=== PATIENT | female | born 2005 | race African-American/Black ===

== ENCOUNTER 2024-05-01 01:36 | Emergency (ER) | payer OTHER, SELFPAY ==
--- NOTE | 2024-05-01 01:37 | ED.GENADULT ---
HPI - General Adult General Date Seen: 05/01/24 Chief complaint: Nausea/Vomiting Stated complaint: vomiting/nausea Time Seen by Provider: 05/01/24 01:37 History of Present Illness HPI narrative: 18 yo generall y healthy female who follows with [facility] for primary care (had a checkup 04/06/[address] Bill) presenting to ER [facility] for evaluation of N/V. He she presents to the ER [facility] accompanied by her college roommate. Patient has been healthy and well lately. This evening she developed symptoms of nausea. Few hours prior to arrival she became very nauseous and has had 3 episodes of nonbilious, nonbloody emesis. No abdominal pain or cramping. No diarrhea. No fever or chills. She has no recent suspicious food intake. No recent antibiotics. No known sick contacts. She has no previous abdominal surgeries. Related Data Home Medications ?Medication ?Instructions ?Recorded ?Confirmed No Known Home Medications 05/01/24 05/01/24 Allergies Allergy/AdvReac Type Severity Reaction Status Date / Time Penicillins Allergy Rash Verified 05/01/24 01:43 PFSH PFS Social History Smoking Status: Never smoker How often do you have a drink containing alcohol: never AUDIT-C Alcohol total score: 0 Non-prescribed substance use: denies use Exam Narrative: Exam Narrative: Constitutional: Appears well-developed and well-nourished. Alert. Conversant. Non toxic. HENT: Head: Atraumatic. Nose: Nose normal. Mouth/Throat: Oral mucosa is clear and moist. Mucous membranes are not desiccated or cracked no trismus. Pharynx normal. Eyes: Conjunctivae normal. EOM normal. Pupils equal, round, and reactive to light. No scleral icterus. Neck: Normal range of motion. Neck supple. No tracheal deviation present. Cardiovascular: Normal rate, regular rhythm. No gallop. No friction rub. No murmur heard. Symmetric radial artery pulses Pulmonary/Chest: Effort normal. No stridor. No respiratory distress. No wheezes. No rales. No rhonchi . Abdominal: Soft. Bowel sounds normal. No distension. No mass. No tenderness. No rebound. No guarding. No CVA tenderness Musculoskeletal: RUE: Normal range of motion. No tenderness. No deformity LUE: Normal range of motion. No tenderness. No deformity RLE: Normal range of motion. No edema. No tenderness. No deformity LLE: Normal range of motion. No edema. No tenderness. No deformity Neurological: Alert and oriented to person, place, and time. Normal strength. CN II-VII intact. No sensory deficit. GCS eye subscore is 4. GCS verbal subscore is 5. GCS motor subscore is 6. Normal coordination Skin: Skin is warm and dry. No rash noted. No pallor. Normal capillary refill. Psychiatric: Normal mood. Normal affect. Const: Vital Signs, click to edit/add: Vital Signs - 24 hr 05/01/24 01:40 Temperature 98.5 F Pulse Rate [Left P ulse Oximeter] 104 H Respiratory Rate 18 Blood Pressure [Ri ght Upper Arm] 119/75 Pulse Oximetry 96 Oxygen Delivery Me thod Room Air Course Course ED Course: Recheck-3:00 a.m.. Nausea improved after Zofran 0 DT. Tolerating oral intake well. No further vomiting. She has now had 1 episode of watery diarrhea. Will order Imodium. Reevaluation(s) Reevaluation #1: Recheck-330. Doing well. Nausea still gone. Tolerating fluids. Feels comfortable discharging home with her roommate. Prescriptions for Zofran through [facility]. She will olive picker Imodium [id number] if needed. Vital Signs Vital signs: Initial Vital Signs Temperature 98.5 F 05/01/24 01:40 Temperature Source Oral 05/01/24 01:40 Pulse Rate 104 H 05/01/24 01:40 Respiratory Rate 18 05/01/24 01:40 Blood Pressure 119/75 05/01/24 01:40 Blood Pressure Mean 89 05/01/24 01:40 Blood Pressure Position Sitting 05/01/24 01:40 Pulse Oximetry 96 05/01/24 01:40 Oxygen Delivery Method Room Air 05/01/24 01:40 Vital Signs Temperature 98.5 F 05/01/24 01:40 Pulse Rate 104 H 05/01/24 01:40 Respiratory Rate 18 05/01/24 01:40 Blood Pressure 119/75 05/01/24 01:40 Pulse Oximetry 96 05/01/24 01:40 Oxygen Delivery Method Room Air 05/01/24 01:40 Temperature 98.5 F 05/01/24 01:40 Pulse Rate 104 H 05/01/24 01:40 Respiratory Rate 18 05/01/24 01:40 Blood Pressure 119/75 05/01/24 01:40 Pulse Oximetry 96 05/01/24 01:40 Oxygen Delivery Method Room Air 05/01/24 01:40 Medications Administered Medications: Discontinued Medications Generic Name Dose Route Start Last Admin Trade Name Angie PRN Reason Stop Dose Admin Loperamide HCl 4 mg 05/01/24 03:03 05/01/24 03:12 Loperamide Hcl 2 Mg Capsule PO 05/01/24 03:04 4 mg ONCE ONE Administration Ondansetron HCl 4 mg 05/01/24 02:03 05/01/24 02:15 Ondansetron Odt 4 Mg Tab PO 05/01/24 02:04 4 mg ONCE ONE Administration Medical Decision Making MDM Narrative Medical decision making narrative: This patient presents with vomiting that began this evening a few hours prior to arrival. While she was here in the ER she also developed watery diarrhea. The patient's symptoms and exam could be consistent with a viral GI infection. There is a high prevalence of noro virus in the community currently. There is no high fever, severe pain, bilious or bloody emesis, blood or mucous in the stool, severe abdominal pain, or other concerning signs for a bacterial infection. No recent travel or high risk exposure for baceraial pathogen. No recent antibiotics or risk factors for C. diff. [] I don't see any evidence for appendicitis, bowel obstruction, abscess, bowel perforation, or other surgical emergency. At this point she is well-hydrated and feeling better after Zofran 0 DT. I do not think she needs IV fluids or labs.. After meds given the patient is feeling better. At this point, the patient is non-septic appearing and well hydrated.I think the patient can be managed as an outpatient. We have discussed oral rehydration strategies. They understand and can perform the needed interventions at home. I have provided a prescription for antiemetics to facilitate oral hydration (Zofran, [facility]).. Patient will olive picker Imodium [id number] if needed tomorrow. We have discussed the signs and symptoms of worsening dehydration. They understand the need for immediate reevaluation if any of these symptoms occur. They are also directed to obtain close outpatient follow up within 2-3 days. Discharge Plan Discharge Clinical Impression: Vomiting and diarrhea Patient Disposition: Home, Self-Care Condition: Stable Instructions: Acute Nausea and Vomiting (DC), Acute Diarrhea (ED) Additional Instructions: As we discussed, use the Zofran if needed for nausea and to help control vomiting. Drink plenty of fluids and small sips of liquids to stay hydrated. If you have more diarrhea you can olive picker Imodium (available at the pharmacy [id number]) and use it as directed on the box. I suspect the probably have a viral GI infection causing her vomiting and diarrhea. This typically will run its course within 24-48 hours. If you are not completely improved within 48 hours, or if you have any worsening symptoms (for instance; high fever, bloody vomit, bloody or mucousy stool, abdominal pain) please return to the ER recheck with her doctor right away Prescriptions: No Action No Known Home Medications Follow Up/Referrals: Provider,Not a Local [Primary Care Provider] - Stand Alone Forms: [employer] Info Instructions
[2024-05-01 01:40] VITALS: BP 119/75; PULSE 104; RESP 18; TEMP 36.9; O2SAT 96; BMI 22.3
[2024-05-01] MEDS: ONDANSETRON ODT 4 MG TAB PO (02:15)
--- OUTSIDE RECORDS SUMMARY | 2024-05-01 02:28 | XMS_ITS | Clinical Summary ---
Author Organization [facility] Address [place], [place] [address] Care Team Providers Care Hand Therapist Name Role Phone Hanny'sCristopher Primary Care Provider Unavai lable Allergies Active Allergy Reactions Criticality Noted Date Comments Penicillins *Unknown 05/05/2012 Medications ORDER - MEDICATION ORDER COMPOSER OTC [facility] cough and cold formula Active ondansetron (ZOFRAN ODT) [address] 1 tablet on the tongue every 8 hours if needed for Nausea/Vomiti ng. 20 tablet 05/05/2012 11:42 PM PAINT SPECIALIST 3 Active Immunizations Name Administration Dates Next Due DTaP 11/11/2009, 6,03/29/2005,01/18,2004 HIB-HepB (Comvax) 09/17/2005,01/18/2005,11/17/19 05 HPV 9 (Gardasil 9) 10/26/2021,11/03/2020 Hepatitis A (Peds) 09/08/2007,03/22/2006 Inactivated Polio Vaccine 11/11/2009,11/2005,01/18/2005,11/16 Influenza, IIV3 (Age 6-35 mos) 01/18/2008 Influenza, IIV3 (Age >=3 years) 01/15/2006,05/03,03/29/2005 Influenza, IIV4 11/23/2019 MENINGOCOCCAL VACCINE 2 VIAL [id number] (MENVEO) 10/18/2016 MMR 11/11/2009,09/17/2005 Meningococcal Vaccine (Menactra) 11/03/2020 Pneumococcal conj 7-Valent (Prevnar 7) 0 12/06/2005,03/29/2005,01/18/2005,11/16 Tdap 12/30/2014 Varicella Vaccine 11/11/2009,09/17/2005 meningococcal B, Recombinant 10/26/2021,11/04/19 21 Family History Medical History Relation Name Comments Good Health Father Good Health Maternal Grandfather Good Health Maternal Grandmother Good Health Mother Good Health Paternal Grandfather Good Health Paternal Grandmother Relation Name Status Comments Father Maternal Grandfather Maternal Grandmother Mother Paternal Grandfather Paternal Grandmother Social History Tobacco Use Types Packs/Day Years Used Date Smoking Tobacco: Never Smokeless Tobacco: Never Tobacco Cessation:Counseling Given: Not Answered Alcohol Use Standard Drinks/Week Comments Never 0 (1 standard drink = 0.6 oz pur e alcohol) PHQ-2 Answer Date Recorded PHQ-2 TOTAL SCORE 0 04/06/2023 Comments No Sex and Gender Information Value Date Recorded Sex Assigned at Not on file Legal Sex Female 7:52 AM PAINT SPECIALIST Gender Identity Not on file Sexual Orientation Not on file Obstetrics History Last Filed Vital Signs Vital Sign Reading Time Taken Comments Blood Pressure 105/68 04/06/2023 9:57 AM PAINT SPECIALIST Pulse 86 04/06/2023 9:57 AM PAINT SPECIALIST Temperature 36.9 C (98.4 F) 09/28/2015 3:34 PM CDT Respiratory Rate 20 09/28/2015 3:34 PM CDT Oxygen Saturation 100% 04/06/2023 9:57 AM PAINT SPECIALIST Inhaled Oxygen Concentration - - Weight 59.1 kg (130 lb 3.2 oz) 04/06/2023 9:57 A M PAINT SPECIALIST Height 163 cm (5' 4.17) 04/06/2023 9:57 AM PAINT SPECIALIST Body Mass Index 22.23 04/06/2023 9:57 AM PAINT SPECIALIST Body Mass Index Percentile 59.42% 04/06/2023 9:5 7 AM PAINT SPECIALIST Growth Chart: CDC (Girls, 2- 20 Years) Plan of Treatment Health Maintenance Due Date Last Done Comments HIV for age 15-65 09/17/2019 HPV series for age 9-26 (3 - 3-dose series) 01/18/2022 10/26/2021, 11/03/2020 Hepatitis C screening for age 18-79 2022 COVID-19 vaccine series (3 - 2024-25 season) 2023 01/18/2021, 12/28/2020 Influenza for age 9-49 11/20/2023 , 01/15/2006, 05/03/2005, Additional history exists BMI (ht and wt on same day) for age 18+ 04/06/2024 04/06/2023 Depression screening for age 12+ 04/06/2024 04/06/2023 Well Child Check for age 3-20 04/06/2024 04/06/2023 Tetanus booster 12/30/2024 12/30/2014 Pneumococcal series for age 6-49 Aged Out 12/06/2005, 03/29/2005, 01/18/2005, Additional history exists No longer eligible based on patient's age to complete this topic Tdap Completed 12/30/2014 Meningococcal series for age 11-21 Completed 11/03/2020, 10/18/2016 Insurance [facility] Care Teams Hand Therapist Relationship Specialty Start Date End Date Cristopher Pan PCP - General 05/05/12
[2024-05-01] MEDS: LOPERAMIDE HCL 2 MG CAPSULE 4 MG PO (03:12)
== END 2024-05-01 03:35 | disposition home or self-care (01) ==
PROVIDERS: Emergency Provider Emergency Medicine
DX: R11.10 Vomiting, unspecified (principal); R19.7 Diarrhea, unspecified
CPT/HCPCS: 99283; A9270